=== PATIENT | female | born 1960 | race Caucasian/White ===

== ENCOUNTER 2018-11-21 13:27 | Emergency (ER) | payer OTHER ==
[~2018-11-21] VITALS: Ht 165.1 cm; Wt 59.0 kg
[2018-11-21] MEDS ORDERED: NORCO 5-325 TA1 EACH PO (17:40)
[2018-11-23] MEDS ORDERED: IBUPROFEN200 MG PO (12:17)
[2018-11-23] MEDS ORDERED: TYLENOL EXTRA500 MG PO (12:18)
== END 2018-11-21 18:10 | disposition home or self-care (01) ==
LOC: ED 13:27
PROC: 2W3DX1Z Immobilization of Left Lower Arm using Splint (ICD-10-PCS; principal; 2018-11-21)
DX: S52.502A Unspecified fracture of the lower end of left radius, initial encounter for closed fracture (principal); S52.602A Unspecified fracture of lower end of left ulna, initial encounter for closed fracture; W19.XXXA Unspecified fall, initial encounter; F17.200 Nicotine dependence, unspecified, uncomplicated; Z88.2 Allergy status to sulfonamides; Y93.21 Activity, ice skating
CPT/HCPCS: 29125; 73110; 73130; 99283-25

== ENCOUNTER 2018-11-25 06:55 | Day surgery (SDC) | payer OTHER ==
[~2018-11-25] VITALS: Ht 165.1 cm; Wt 59.0 kg
[~2018-11-25 06:55] MED LIST: IBUPROFEN200 MG PO; NORCO 5-325 TA1 EACH PO; TYLENOL EXTRA500 MG PO
--- NOTE | 2018-11-25 08:19 | NUR ---
RESTS QUIETLY WITH EYES CLOSED. RESP EVEN.
--- NOTE | 2018-11-25 10:03 | NUR ---
PT IS ASLEEP-MARTHA MCCARTHY REQUESTED I NOT DISTURB HER AT THIS TIME. WILL FOLLOW NEEDED
--- NOTE | 2018-11-25 10:13 | NUR ---
11/25/18 1013 Catherine Mcarthur 1005 PATIENT ARRIVES WITH ORAL AIRWAY IN PLACE, MASK AT 6 LITERS. 1006 PATIENT OPENS EYES SPONTANEOUSLY, ORAL AIRWAY REMOVED. AWAKE, BUT VERY DROWSY. RESP EVEN AND UNLABORED, MASK AT 6 LITERS. PATIENT DENIES PAIN OR NAUSEA. 1010 PATIENT AWAKE, ASKING QUESTIONS APPROPRIATELY, REPORTS A SMALL AMOUNT OF PAIN, DENIES NAUSEA. MASK OFF, ROOM AIR SATS 99%.
--- NOTE | 2018-12-07 07:17 | OR ---
[facility] [address], [place] [address] Signed DATE OF OPERATION: 11/25/2018 SURGEON: Rajendra Blankenship MD PREOPERATIVE DIAGNOSIS: Angulated distal radial fracture, left. POSTOPERATIVE DIAGNOSIS: Angulated distal radial fracture, left. PROCEDURE: Open reduction and internal fixation with a locked volar plate. ANESTHESIA: Axillary block with sedation. SPECIMENS AND COMPLICATIONS: There were no specimens or complications. TOURNIQUET TIME: A little over half an hour. WHAT WAS DONE: The patient was taken to the operating room, placed on the operating room table in supine position. After anesthesia was induced and airway secured, the patient was positioned, prepped and draped in the routine sterile fashion. The fracture was manipulatively reduced and she was then placed in fingertrap traction. The arm was exsanguinated with an Esmarch bandage. Pneumatic tourniquet was inflated to 250 mmHg. We then made a volar incision beginning at the distal wrist flexion crease and extending proximally for about 7 cm in line with the FCR tendon. Skin was divided sharply. Subcutaneous tissue was bluntly spread. The FCR tendon sheath was opened on the volar and then on the dorsal aspect and all of the flexor contents were then gently retracted in an ulnar direction. A small self-retaining retractor was placed and the fracture site identified and exposed subperiosteally. We peeled off the small portion of the pronator. After ascertaining that we had an anatomic reduction and fine tuning the reduction with a dental pick tool, we placed an 8 x 3 distal volar radial plate. It was secured with a single 2.6 mm screw through the gliding hole and we then used a fluoroscopy to fine tune the position of the plate. Once we were happy, we secured the screw and then placed two additional screws approximately, one screw and three buttress pins distally. AP and lateral fluoroscopy showed excellent alignment, position and a Electronically Signed By: RAJENDRA BLANKENSHIP MD 12/07/18 0717 PATIENT NAME: EVE HOPKINS OPERATIVE REPORT DATE OF : 62 REPORT #: [id number] PHYSICIAN: RAJENDRA BLANKENSHIP MD PCP: SHAHNAZ THOMPSON MD REPORT IS CONFIDENTIAL AND NOT TO BE RELEASED WITHOUT AUTHORIZATION [address] [address] Signed stable construct. The wound was gently irrigated and closed in a standard fashion. Sterile dressing and a volar splint were placed. The patient was awakened and taken to the recovery room where she arrived in stable condition. Counts were correct and antibiotic protocols were followed. Rajendra Blankenship MD WFB/MODL /[id number] Copies: ~ Electronically Signed By: RAJENDRA BLANKENSHIP MD 12/07/18 0717 PATIENT NAME: EVE HOPKINS OPERATIVE REPORT DATE OF : 62 REPORT #: [id number] PHYSICIAN: RAJENDRA BLANKENSHIP MD PCP: SHAHNAZ THOMPSON MD REPORT IS CONFIDENTIAL AND NOT TO BE RELEASED WITHOUT AUTHORIZATION
== END 2018-11-25 11:15 | disposition home or self-care (01) ==
LOC: DS 06:55 → OPS 06:55 → DS 08:30 → OPS 11:15
PROVIDERS: Orthopaedic Surgery
PROC: 0PSJ04Z Reposition Left Radius with Internal Fixation Device, Open Approach (ICD-10-PCS; principal; 2018-11-25 08:30)
DX: S52.532A Colles' fracture of left radius, initial encounter for closed fracture (principal); W18.30XA Fall on same level, unspecified, initial encounter
CPT/HCPCS: 01830; 64417; 73100; 76942; C1713; J0690; J1100; J1885; J2250; J2270; J2405; J2704; J2795; J3010; J7120